=== PATIENT | female | born 1950 | race Caucasian/White ===

== ENCOUNTER → 2017-01-29 | Day surgery (SDC) | payer MEDICARE ==
[~2017-01-29] MED LIST: BUPIVACAINE/EPINEPHRINE 0.25% 50 ML VIAL ONE; LACTATED RINGER'S 1000 ML INJ 1,000 ML ONE; MIDAZOLAM HCL 2 MG/2 ML VIAL ONE; MORPHINE SULFATE 4 MG/ML INJ ONE; ONDANSETRON HCL 4 MG/2 ML VIAL IV PUSH ONE; PROPOFOL 200 MG/20 ML AMP IV ONE; ceFAZolin 2 GM PREMIX 50 ML ONE
--- NOTE | 2017-01-29 13:29 | TN ---
cc: DANIS ANDERSON DATE OF SURGERY: 01/29/2017. PREOPERATIVE DIAGNOSIS: Thin melanoma left back. POSTOPERATIVE DIAGNOSIS: Thin melanoma left back. OPERATIVE PROCEDURE PERFORMED: Wide excision of melanoma of the left back with intermediate closure of wound 7 cm x 3 cm. ATTENDING SURGEON: Danis Anderson M.D. [employer]CH [employer]SEMBLY INSPECTOR: Staff. ANESTHESIA: General with local anesthetic. ESTIMATED BLOOD LOSS: Less than 17 cc. COMPLICATIONS: None. FINDINGS: Wound closed with minimal tension. 1 cm excision 360 degrees around the melanoma biopsy site. INDICATIONS FOR THE PROCEDURE: The patient is a 66-year-old female recently diagnosed a thin melanoma left back. After discussion with the patient about the treatment options including of risks, benefits, alternatives to wide excision of melanoma, she agreed to undergo the procedure. DESCRIPTION OF THE PROCEDURE IN DETAIL: The patient was taken to the operating room at the [facility], [place] and placed under general anesthesia and placed on the right decubitus position. The left back was prepped and draped in sterile fashion. Time-out was performed. We instilled the area in a field type block with local anesthetic over the melanoma site. We marked this 1 cm and 360 degrees around and converted this into an elliptical type incision with the skin lines of tension. We were able to excise this with a 15 blade scalpel as well as well as with a buzz electrocautery. The subcutaneous tissue was taken off the trapezius muscle without difficulty. We marked this with a stitch at 12:00 o'clock and passed this off for permanent pathology. We undermined a small amount around the wound with the Bovie electrocautery and had excellent hemostasis with the Bovie electrocautery. We closed the subcutaneous tissue with deep dermal #0 Vicryl sutures followed by 4-0 Monocryl and Dermabond. The wound size was 3 cm x 7 cm. The patient tolerated the procedure well. There were no apparent complications. All counts were correct. I was present and scrubbed for the entire procedure. MD LURDES Freitas/MARI /9:08 AM /1:19 PM
== END | disposition home or self-care (01) ==
LOC: ESDC 06:52
PROVIDERS: ATTEND Surgery
DX: D03.59 Melanoma in situ of other part of trunk (principal)
CPT/HCPCS: 00300; 11606; 12032; 88305; J0690; J2250; J2270; J2405; J3010; J7120

== ENCOUNTER 2017-08-20 15:24 | Emergency (ER) | payer MEDICARE ==
[~2017-08-20] VITALS: Ht 152.4 cm; Wt 58.0 kg
[2017-08-20 15:31] VITALS: BP 160/76; PULSE 85; RESP 17; TEMP 98.2; O2SAT 99
--- NOTE | 2017-08-20 16:06 | PD ---
HPI Chief Complaint: Cardiac Complaint Time Seen by Provider: 15:56 Travel History International Travel<30 days: No Contact w/Intl Traveler<30days: No Traveled to known affect area: No History of Present Illness HPI This is a 66-year-old female with history of hypertension hyperlipidemia. She presents for evaluation of palpitations. Symptoms started 2 months ago. She reports a intermittent fluttering sensation in her chest which typically gets better when she coughs. Today the symptoms were more consistent and this is what prompted evaluation. She has not yet seen her primary care physician about this long-standing issue. She also reports an aching sensation in the muscles of her arms for the past few months as well. She denies chest pain, shortness of breath, nausea, vomiting, abdominal pain, diarrhea, constipation, fevers, chills. She denies any personal history of cardiac disease however she does have family history of coronary artery disease. Denies any history of polymyalgia rheumatica. She has no other complaints at this time. [facility] Social History Alcohol Use: Yes Tobacco Use: Yes Allergies-Medications (Allergen,Severity, Reaction): Coded Allergies: No Known Allergies (Unverified , 08/20/17) Review of Systems Except as stated in HPI: all other systems reviewed are Neg Physical Exam Narrative GENERAL: Pleasant well-developed well-nourished female no acute distress SKIN: Warm and dry. HEAD: Atraumatic. Normocephalic. EYES: Pupils equal and round. No scleral icterus. No injection or drainage. ENT: No nasal bleeding or discharge. Mucous membranes pink and moist. NECK: Trachea midline. No JVD. CARDIOVASCULAR: Regular rate and rhythm. No murmur appreciated. RESPIRATORY: No accessory muscle use. Clear to auscultation. Breath sounds equal bilaterally. GASTROINTESTINAL: Abdomen soft, non-tender, nondistended. Hepatic and splenic margins not palpable. MUSCULOSKELETAL: No obvious deformities. No clubbing. No cyanosis. No edema. NEUROLOGICAL: Awake and alert. No obvious cranial nerve deficits. Motor grossly within normal limits. Normal speech. PSYCHIATRIC: Appropriate mood and affect; insight and judgment normal. Data Data Last Documented VS Vital Signs Date Time Temp Pulse Resp B/P (MAP) Pulse Ox O2 Delivery O2 Flow Rate FiO2 08/20/17 16:35 74 16 131/72 (91) 97 Room Air 08/20/17 15:31 98.2 Orders Orders Electrocardiogram (4/4/18 15:34) Complete Blood Count With Diff (08/20/17 15:34) Basic Metabolic Panel (Bmp) (08/20/17 15:34) Ckmb (Isoenzyme) Profile (08/20/17 15:34) Troponin I (08/20/17 15:34) Magnesium (Mg) (08/20/17 15:45) Chest, Pa & Lat (08/20/17 15:34) Labs Laboratory Tests Test 08/20/17 16:10 White Blood Count 9.7 TH/MM3 Red Blood Count 5.03 MIL/MM3 Hemoglobin 15.3 GM/DL Hematocrit 44.4 % Mean Corpuscular Volume 88.1 FL Mean Corpuscular Hemoglobin 30.4 PG Mean Corpuscular Hemoglobin Concent 34.5 % Red Cell Distribution Width 13.9 % Platelet Count 224 TH/MM3 Mean Platelet Volume 9.9 FL Neutrophils (%) (Auto) 62.8 % Lymphocytes (%) (Auto) 25.6 % Monocytes (%) (Auto) 9.0 % Eosinophils (%) (Auto) 1.5 % Basophils (%) (Auto) 1.1 % Neutrophils # (Auto) 6.1 TH/MM3 Lymphocytes # (Auto) 2.5 TH/MM3 Monocytes # (Auto) 0.9 TH/MM3 Eosinophils # (Auto) 0.1 TH/MM3 Basophils # (Auto) 0.1 TH/MM3 CBC Comment DIFF FINAL Differential Comment Blood Urea Nitrogen 19 MG/DL Creatinine 1.06 MG/DL Random Glucose 112 MG/DL Calcium Level 9.8 MG/DL Sodium Level 138 MEQ/L Potassium Level 3.6 MEQ/L Chloride Level 103 MEQ/L Carbon Dioxide Level 28.3 MEQ/L Anion Gap 7 MEQ/L Estimat Glomerular Filtration Rate 52 ML/MIN Magnesium Level 2.2 MG/DL Total Creatine Kinase 85 U/L Troponin I LESS THAN 0.02 NG/ML MDM Medical Decision Making Medical Screen Exam Complete: Yes Emergency Medical Condition: Yes Medical Record Reviewed: Yes Differential Diagnosis PVCs, PACs, SVT, ventricular tachycardia, atrial fibrillation, electrolyte abnormality, anxiety Narrative Course The patient was placed on ECG monitoring pulse oximetry. A 12-lead EKG was obtained. Lab work, chest x-ray have been ordered. Chest x-ray is normal. EKG reveals sinus rhythm. Extended ECG monitoring during the patient's hospitalization revealed no evidence of arrhythmia. CBC is normal. BMP reveals a BUN of 19, creatinine 1.06, glucose 106, otherwise unremarkable. Magnesium is normal. Cardiac enzymes are negative. Patient is asymptomatic. At this point in time the plan will be to have the patient follow up with her primary care physician for possible outpatient Holter monitoring. She is agreeable. Diagnosis Primary Impression: Palpitations Additional Instructions: As discussed, follow-up with primary care physician for possible Holter monitoring or cardiology referral. Return for any emergent medical conditions. Med/Other Pt SpecificInfo: No Change to Meds Disposition: 01 DISCHARGE HOME Condition: Stable Tello Mckeon Aug 20, 2017 16:06
--- NOTE | 2017-08-20 16:22 | RADRPT ---
EXAM DATE/TIME: 08/20/2017 15:47 [facility] COMPARISON: No previous studies available for comparison. INDICATIONS : Irregular heart beat, pain and aching, throbbing in both of her arms MEDICAL HISTORY : None. SURGICAL HISTORY : None. ENCOUNTER: Initial ACUITY: 2 days PAIN SCORE: 0/10 LOCATION: Bilateral chest FINDINGS: PA and lateral views of the chest demonstrate the lungs to be symmetrically aerated without evidence of mass, infiltrate or effusion. The cardiomediastinal contours are unremarkable. Osseous structure s are intact. CONCLUSION: No acute cardiopulmonary disease. Michelet Adams MD on August 20, 2017 at 16:19 Board Certified Radiologist. This report was verified electronically.
[2017-08-20 16:30] LABS: AUTOMATED NEUTROPHIL # 6.1 TH/MM3 (1.8-7.7); BASOPHIL # 0.1 TH/MM3 (0-0.2); BASOPHIL % 1.1 % (0.0-2.0); EOSINOPHIL # 0.1 TH/MM3 (0-0.4); EOSINOPHIL % 1.5 % (0.0-4.0); HEMATOCRIT 44.4 % (35.0-46.0); HEMOGLOBIN 15.3 GM/DL (11.6-15.3); LYMPH % 25.6 % (9.0-44.0); LYMPHOCYTE # 2.5 TH/MM3 (1.0-4.8); MEAN CELL VOLUME 88.1 FL (80.0-100.0); MEAN CORPUSCULAR HEMOGLOBIN 30.4 PG (27.0-34.0); MEAN CORPUSCULAR HGB CONC 34.5 % (32.0-36.0); MEAN PLATELET VOLUME 9.9 FL (7.0-11.0); MONOCYTE # 0.9 TH/MM3 (0-0.9); NEUT % 62.8 % (16.0-70.0); PLATELET COUNT 224 TH/MM3 (150-450); RED BLOOD COUNT 5.03 MIL/MM3 (4.00-5.30); RED CELL DISTRIBUTION WIDTH 13.9 % (11.6-17.2); WHITE BLOOD COUNT 9.7 TH/MM3 (4.0-11.0)
[2017-08-20 16:35] VITALS: BP 131/72; PULSE 74; RESP 16; O2SAT 97
--- NOTE | 2017-08-20 17:18 | PD ---
Data Data Last Documented VS Vital Signs Date Time Temp Pulse Resp B/P (MAP) Pulse Ox O2 Delivery O2 Flow Rate FiO2 08/20/17 16:35 74 16 131/72 (91) 97 Room Air 08/20/17 15:31 98.2 Orders Orders Electrocardiogram (08/20/17 15:34) Complete Blood Count With Diff (08/20/17 15:34) Basic Metabolic Panel (Bmp) (08/20/17 15:34) Ckmb (Isoenzyme) Profile (08/20/17 15:34) Troponin I (08/20/17 15:34) Magnesium (Mg) (08/20/17 15:45) Chest, Pa & Lat (08/20/17 15:34) Labs Laboratory Tests Test 08/20/17 16:10 White Blood Count 9.7 TH/MM3 Red Blood Count 5.03 MIL/MM3 Hemoglobin 15.3 GM/DL Hematocrit 44.4 % Mean Corpuscular Volume 88.1 FL Mean Corpuscular Hemoglobin 30.4 PG Mean Corpuscular Hemoglobin Concent 34.5 % Red Cell Distribution Width 13.9 % Platelet Count 224 TH/MM3 Mean Platelet Volume 9.9 FL Neutrophils (%) (Auto) 62.8 % Lymphocytes (%) (Auto) 25.6 % Monocytes (%) (Auto) 9.0 % Eosinophils (%) (Auto) 1.5 % Basophils (%) (Auto) 1.1 % Neutrophils # (Auto) 6.1 TH/MM3 Lymphocytes # (Auto) 2.5 TH/MM3 Monocytes # (Auto) 0.9 TH/MM3 Eosinophils # (Auto) 0.1 TH/MM3 Basophils # (Auto) 0.1 TH/MM3 CBC Comment DIFF FINAL Differential Comment [facility] Supervised Visit with DOLLY: Yes Narrative Course I, Dr. Lee, have reviewed the advance practice practitioner's documentation and am in agreement, met with the patient face to face, made the diagnosis, and the medical decision making was done by me. *My assessment and Findings: This patient complains of palpitations. She has intermittent spells that have been going on for about 2 months. She has been running a sinus rhythm here without ectopy on extended cardiac iliac monitoring. I reviewed her EKG which is normal. Lab studies have been done. She is stable for outpatient follow-up. I discussed Holter monitor with her. I recommendation would be to have her outpatient physician get a Holter monitor evaluation. She has spells about 4 times per day. We discussed avoiding cardiac stimulants such as decongestants and nicotine and caffeine etc. Eugene Lee MD Aug 20, 2017 17:18
[2017-08-20 17:35] LABS: BICARBONATE 28.3 MEQ/L (21.0-32.0); BLOOD UREA NITROGEN 19 MG/DL (7-18); CALCIUM 9.8 MG/DL (8.5-10.1); CHLORIDE 103 MEQ/L (98-107); CREATININE 1.06 MG/DL (0.50-1.00); GLOMERULAR FILTRATION RATE 52 ML/MIN (>89); GLUCOSE,RANDOM 112 MG/DL (74-106); SODIUM (NA) 138 MEQ/L (136-145); TROPONIN I LESS THAN 0.02 NG/ML (0.02-0.05)
--- NOTE | 2017-08-21 13:41 | EKG ---
Date Performed: 08/20/2017 Time Performed: 16:23:33 PTAGE: 66 years EKG: Sinus rhythm POSSIBLE LEFT ATRIAL ENLARGEMENT BORDERLINE ECG NO PREVIOUS TRACING DOCTOR: Taylor Corral Interpretating Date/Time 08/21/2017 13:39:28
== END 2017-08-20 18:53 | disposition home or self-care (01) ==
LOC: NEPC 15:24
DX: R00.2 Palpitations (principal); Z72.0 Tobacco use
CPT/HCPCS: 71046; 80048; 82550; 83735; 84484; 85025; 93005